=== PATIENT | female | born 1945 | race Caucasian/White ===

== ENCOUNTER → 2017-04-26 | Outpatient (CLI) | payer OTHER ==
[~2017-04-26] MED LIST: ADULT LOW DOSE81 MG; ALTACE10 M1; CIPROFLOXACIN500 M1 PO; GLUCOPHAGE500 MG; HYDROCHLOROTH12.5 MG; LOPRESSOR; NORCO 5-325 TA1 EACH PO; NORVASC 2.5 MG2.5 M1; PROTONIX40 M2; VENLAFAXINE HCL75 M2
== END ==
LOC: RAD 09:23
DX: M43.8X4 Other specified deforming dorsopathies, thoracic region (principal); M47.894 Other spondylosis, thoracic region

== ENCOUNTER → 2018-09-07 | Outpatient (CLI) | payer OTHER | LOC: ULTRA 09:27 | DX: R09.89 Other specified symptoms and signs involving the circulatory and respiratory systems (principal) ==

== ENCOUNTER → 2020-09-14 | Outpatient (CLI) | payer OTHER | LOC: ULTRA 07:40 | PROVIDERS: ATTEND Nurse Practitioner | DX: R74.8 Abnormal levels of other serum enzymes (principal); Z90.49 Acquired absence of other specified parts of digestive tract ==

== ENCOUNTER → 2020-11-11 | Outpatient (CLI) | payer OTHER | LOC: BC 10:38 | PROVIDERS: ATTEND Nurse Practitioner | DX: Z12.31 Encounter for screening mammogram for malignant neoplasm of breast (principal) ==

== ENCOUNTER → 2020-12-16 | Outpatient (CLI) | payer OTHER ==
[~2020-12-16] MED LIST changes: -ADULT LOW DOSE81 MG; +ADULT LOW DOSE81 MG PO; -ALTACE10 M1; +ALTACE10 MG PO; +BRINTELLIX20 MG PO; +DOXYCYCLINE 10100 M2 PO; +HYDROCHLOROTH12.5 M2 PO; +IRON236 MG PO; +JANUMET XR 50-1 EAC1 PO; -LOPRESSOR; +NEURONTIN300 MG PO; -PROTONIX40 M2; +PROTONIX40 M2 PO; +TOPROL XL50 MG PO; +VITAMIN D325 MC5 PO; +ZINC50 M2 PO
== END ==
LOC: ULTRA 11:00
PROVIDERS: ATTEND Nurse Practitioner
DX: R19.09 Other intra-abdominal and pelvic swelling, mass and lump (principal); L02.211 Cutaneous abscess of abdominal wall

== ENCOUNTER → 2021-02-01 | Outpatient (CLI) | payer OTHER | LOC: LAB 06:22 | PROVIDERS: ATTEND Student in an Organized Health Care Education/Training Program | DX: Z01.812 Encounter for preprocedural laboratory examination (principal); Z20.822 Contact with and (suspected) exposure to COVID-19 ==

== ENCOUNTER → 2021-04-16 | Outpatient (CLI) | payer OTHER | LOC: NUC 04-05 15:31 | PROVIDERS: ATTEND Nurse Practitioner | DX: Z78.0 Asymptomatic menopausal state (principal) ==